=== PATIENT | female | born 1990 | race Caucasian/White ===

== ENCOUNTER 2023-01-06 12:11 | Emergency (ER) | payer MEDICAID, OTHER ==
[~2023-01-06] VITALS: Ht 157.5 cm; Wt 44.0 kg
[2023-01-06 12:26] VITALS: BP 134/105
[2023-01-06 13:18] LABS: BASOPHILS % 0.8 % (0.0-2.0); EOSINOPHILS % 1.8 % (0.0-5.0); HEMOGLOBIN. 14.1 g/dL (12.0-16.0); LYMPHOCYTES % 15.6 % (20.0-50.0); MEAN CORPUSCULAR HEMOGLOBIN 29.5 pg (28.0-32.0); MEAN CORPUSCULAR VOLUME 87.9 fL (81.0-99.0); MEAN PLATELET VOLUME 11.9 fl (7.4-10.4); MONOCYTES % 8.6 % (2.0-8.0); NEUTROPHILS % 73.2 % (40.0-76.0); PLATELET 223 x1000/uL (130-400); RED BLOOD CELL COUNT 4.78 mill/uL (4.2-5.4)
[2023-01-06 13:25] LABS: CHLORIDE 101 mEq/L (98-107)
[2023-01-06 13:30] LABS: PROTHROMBIN TIME 10.3 sec (9.6-11.0)
[2023-01-06] MEDS ORDERED: DEXT 5%/LACTATED RINGERS 1,000 ML IV SCH (17:15)
[2023-01-06] MEDS ORDERED: MANNITOL 12.5G (25%) VIAL 50ML IV ONE (17:15)
[2023-01-06] MEDS ORDERED: MANNITOL 20% 100 ML IV NR (17:30)
[2023-01-06] MEDS ORDERED: DEXAMETHASONE 4MG/ML 1ML VIAL IV SCH (18:00)
== END 2023-01-06 19:02 | disposition left against medical advice (07) ==
LOC: ER 12:11
DX: G96.08 Other cranial cerebrospinal fluid leak (principal); G80.9 Cerebral palsy, unspecified
CPT/HCPCS: 36415; 80053; 85025; 86850; 86900; 99284